=== PATIENT | female | born 1985 | race Caucasian/White ===

== ENCOUNTER 2017-04-17 01:38 | Emergency (ER) | payer BC ==
[~2017-04-17] VITALS: Ht 162.6 cm; Wt 87.7 kg
[2017-04-17 01:55] VITALS: BP 100/61
[2017-04-17 02:43] LABS: HEMATOCRIT 38.3 % (36.0-46.0); MCH 26.9 PG (29.0-34.0); MCHC 30.8 G/DL (30.0-36.0); MCV 87.2 FL (83-99); MEAN PLAT.VOLUME 12.8 uM^3 (9.5-12.4); PLATELET COUNT 104 K/uL (156-360); RBC DIS.WIDTH-CV 13.6 % (11.8-14.6); RBC DIS.WIDTH-SD 43.5 % (39-53); RED BLOOD COUNT 4.39 M/uL (3.80-5.20); WHITE BLOOD COUNT 10.3 K/uL (4.1-10.2)
[2017-04-17 02:52] LABS: CHLORIDE 100 mEq/L (99-109); POTASSIUM 3.6 mEq/L (3.7-5.4); SODIUM 136 mEq/L (136-147)
[2017-04-17 02:53] LABS: GLUCOSE 135 mg/dL (70-99)
[2017-04-17 02:55] LABS: ANION GAP 12 MEQ/L (2-14)
[2017-04-17 02:58] LABS: UREA NITROGEN (BUN) 16 mg/dL (9-23)
[2017-04-17 03:02] LABS: GFR ESTIMATE (CALCULATED) > 59 mL/min/
[2017-04-17 03:03] LABS: TROP-I INTERPRETATION NEGATIVE; TROPONIN-I < 0.01 ng/mL (0.0-0.30)
[2017-04-17 04:26] LABS: TOTAL BILIRUBIN 0.6 mg/dL (0.0-1.0)
[2017-04-17 04:27] LABS: ALKALINE PHOSPHATASE 164 IU/L (3-129)
[2017-04-17 04:29] LABS: DIRECT BILIRUBIN 0.3 mg/dL (0.0-0.3)
[2017-04-17 04:30] LABS: LIPASE 22 U/L (1.0-51.0)
[2017-04-17 04:45] LABS: QUANTITATIVE HCG < 4.0 MIU/ML
== END 2017-04-17 04:25 | disposition left against medical advice (07) ==
LOC: EME 01:38
DX: M54.9 Dorsalgia, unspecified (principal); R07.9 Chest pain, unspecified; Z53.21 Procedure and treatment not carried out due to patient leaving prior to being seen by health care provider
CPT/HCPCS: 71020; 80048; 80076; 83690; 84484; 84702; 85027; 93005